=== PATIENT | female | born 1985 | race Native Hawaiian/Other Pacific Islander ===

== ENCOUNTER 2021-04-26 00:09 | Emergency (ER) | payer OTHER ==
[~2021-04-26] VITALS: Ht 157.5 cm; Wt 83.9 kg
[2021-04-26 01:07] LABS: PLATELET COUNT 276 K/uL (152-353)
[2021-04-26 01:30] LABS: POTASSIUM 3.8 mmol/L (3.6-5.2)
[2021-04-26 02:34] VITALS: BP 105/64; TEMP 97.7
== END 2021-04-26 02:50 | disposition home or self-care (01) ==
LOC: ED 00:09
PROVIDERS: Hospitalist
DX: L70.0 Acne vulgaris (principal); K59.09 Other constipation
CPT/HCPCS: 36415; 80053; 81000; 83690; 85027; 96365; 96375; 99284; J1885; J2405; J3370